=== PATIENT | female | born 1970 | race Caucasian/White ===

== ENCOUNTER 2020-08-11 10:23 | Outpatient (CLI) | payer BC, SELFPAY ==
--- NOTE | ~2020-08-11 | MM_ITS ---
EXAMINATION: MM screening ant BI w tom HISTORY: Screening TECHNIQUE: Craniocaudal and mediolateral oblique 3-D tomosynthesis images were obtained and synthetic 2-D images were generated. CAD analysis was submitted and interpreted. COMPARISON: Comparison to multiple prior studies sequentially, with oldest reviewed study dated 07/15. BREAST PARENCHYMAL COMPOSITION: The breasts are heterogeneously dense, which may obscure small masses . FINDINGS: There is no evidence of suspicious mass, calcification, or architectural distortion to sugg est malignancy in either breast. There has been no suspicious interval change. IMPRESSION: 1. No mammographic evidence of malignancy. 2. Recommend routine screening mammography in one year. BI-RADS Category 1: Negative Reviewed, dictated and finalized at location A.
== END 2020-08-11 10:24 | disposition home or self-care (01) ==
PROVIDERS: Visit Provider Obstetrics & Gynecology
DX: Z12.31 Encounter for screening mammogram for malignant neoplasm of breast (principal)
CPT/HCPCS: 77063; 77067

== ENCOUNTER 2021-08-17 15:56 | Outpatient (CLI) | payer BC, SELFPAY ==
--- NOTE | ~2021-08-17 | MM_ITS ---
EXAMINATION: MM screening [facility] BI w tom HISTORY: Screening mammogram TECHNIQUE: Craniocaudal and mediolateral oblique 3-D tomosynthesis images were obtained and synthetic 2-D images were generated. Right rotated lateral cc view. CAD analysis was submitted and interpreted . COMPARISON: 08/11/2020, 08/05/2019, 08/18/2018, 07/31/2017, 07/26/2016, 07/21/2015, 07/15/2014, 07/02/2013 b ilateral digital screening mammogram examinations BREAST PARENCHYMAL COMPOSITION: The breasts are heterogeneously dense, which may obscure small masses . FINDINGS: An approximately 7.7 mm circumscribed mass is partially visualized at the very posterior ma rgin of the inner left breast on craniocaudal view (craniocaudal Tomosynthesis image 36/68). Diagnost ic left mammogram and left breast ultrasound examination are recommended. Otherwise there is no evidence of suspicious mass, calcification, or architectural distortion to sugg est malignancy in either breast. There has been no other suspicious interval change. IMPRESSION: 1. Posterior inner left breast approximately 7.7 mm mass 2. Diagnostic left mammogram and left breast ultrasound examination are recommended. BI-RADS Category 0: Incomplete: Needs additional imaging evaluation. Reviewed, dictated and finalized at location A. IMPRESSION: 1. Posterior inner left breast approximately 7.7 mm mass 2. Diagnostic left mammogram and left breast ultrasound examination are recomme nded. BI-RADS Category 0: Incomplete: Needs additional imaging evaluation.
== END 2021-08-17 15:57 | disposition home or self-care (01) ==
LOC: ANHIMG 15:58
PROVIDERS: PCP Nurse Practitioner Family; Visit Provider Obstetrics & Gynecology
DX: Z12.31 Encounter for screening mammogram for malignant neoplasm of breast (principal); R92.8 Other abnormal and inconclusive findings on diagnostic imaging of breast
CPT/HCPCS: 77063; 77067

== ENCOUNTER 2021-09-03 12:32 | Outpatient (CLI) | payer BC, SELFPAY ==
--- NOTE | ~2021-09-03 | MMUS_ITS ---
EXAMINATION: MM diagnostic ant LT w tom, US breast LT limited HISTORY: Follow-up left breast mass TECHNIQUE: Additional 3-D tomosynthesis images of the left breast were performed and synthetic 2-D im ages were generated. CAD analysis was submitted and interpreted. High resolution Limited left breast ultrasound was performed. COMPARISON: Comparison to multiple prior studies sequentially, with oldest reviewed study dated 07/26. BREAST PARENCHYMAL COMPOSITION: Breast composed of scattered areas of fibroglandular density. FINDINGS: MAMMOGRAPHIC FINDINGS: There is a radiolucent mass anteriorly and medially which is unchanged from prior examinations, benig n. There is a persistent mass in the lower inner quadrant of the left breast with radiolucent center and circumscribed margins measuring approximately 8 mm maximum dimension. No suspicious calcification s or architectural distortion. ULTRASOUND: Limited left breast ultrasound: At 12:00 near the nipple is a cluster of cysts measuring up to 7 mm i n aggregate. There are prominent subareolar and periareolar ducts. At 6:00 near the nipple there is a 5 mm cyst. At 8:00, 3 cm from the nipple, there is irregular hyperechoic soft tissue, likely normal interstitial tissue which blends with the surrounding parenchyma. No definite sonographic correlate t o the mass in the lower inner quadrant posteriorly. IMPRESSION: 1. Probable benign mass lower inner quadrant of the left breast without definite sonographic correlat e. 2. Recommend 6 month follow-up diagnostic left mammogram with possible ultrasound. BI-RADS category 3, probably benign findings. Reviewed, dictated and finalized at location A. IMPRESSION: 1. Probable benign mass lower inner quadrant of the left breast without definit e sonographic correlate. 2. Recommend 6 month follow-up diagnostic left mammogram with possible ultrasou nd. BI-RADS category 3, probably benign findings.
== END 2021-09-03 12:33 | disposition home or self-care (01) ==
LOC: ANHIMG 12:33
PROVIDERS: PCP Nurse Practitioner Family; Visit Provider Obstetrics & Gynecology
DX: R92.8 Other abnormal and inconclusive findings on diagnostic imaging of breast (principal)
CPT/HCPCS: 76642; 77061; 77065; G0279

== ENCOUNTER 2022-03-04 12:56 | Outpatient (CLI) | payer BC, SELFPAY ==
--- NOTE | ~2022-03-04 | MMUS_ITS ---
EXAMINATION: MM diagnostic ant LT w tom, US breast LT complete HISTORY: Six-month follow-up of probable benign mass lower inner quadrant left breast without definit e sonographic correlate TECHNIQUE: ML, MLO and CC 3-D tomosynthesis images of the right breast were performed and synthetic 2 -D images were generated. Rotated medial and rotated lateral craniocaudal views. CAD analysis was sub mitted and interpreted. High resolution complete left breast ultrasound including all 4 quadrants and subareolar area was performed. COMPARISON: 09/03/2021 diagnostic left mammogram and limited left breast ultrasound Serial mammograms dating back to 07/19/2013 were reviewed BREAST PARENCHYMAL COMPOSITION: The breasts are heterogeneously dense, which may obscure small masses . FINDINGS: MAMMOGRAPHIC FINDINGS: Stable or diminished opacities are noted in the anterior inner left breast and posterior lateral inne r left breast compared to 07/02/2013. No interval suspicious mass, architectural distortion, malignant calcification, skin thickening or re traction of the left breast is detected. ULTRASOUND: Dilated fluid-filled ducts are noted in the subareolar area. Stable septated cyst at 12:00 near the nipple, measuring approximately 5.5 mm maximal dimension 8:00 3 cm from nipple: Stable appearance of mixed density peripherally hyperechoic and centrally hypo echoic area without suspicious shadowing or internal vascularity, likely benign IMPRESSION: 1. Probably benign findings 2. 6 month diagnostic bilateral mammogram follow-up with targeted left breast ultrasound is recommend ed BI-RADS category 3, probably benign findings. Reviewed, dictated and finalized at location A. IMPRESSION: 1. Probably benign findings 2. 6 month diagnostic bilateral mammogram follow-up with targeted left breast u ltrasound is recommended BI-RADS category 3, probably benign findings.
== END 2022-03-04 12:57 | disposition home or self-care (01) ==
PROVIDERS: PCP Nurse Practitioner Family; Visit Provider Obstetrics & Gynecology
DX: R92.8 Other abnormal and inconclusive findings on diagnostic imaging of breast (principal)
CPT/HCPCS: 76641; 77061; 77065; G0279

== ENCOUNTER 2022-08-22 12:13 | Outpatient (CLI) | payer BC, SELFPAY ==
--- NOTE | ~2022-08-22 | MMUS_ITS ---
EXAMINATION: MM diagnostic ant BI w tom, US breast LT limited HISTORY: Six-month follow-up for probably benign left breast mass TECHNIQUE: Craniocaudal, mediolateral, and mediolateral oblique 3-D tomosynthesis images of the left breast were performed and synthetic 2-D images were generated. CAD analysis was submitted and interpr eted. High resolution limited left breast ultrasound was performed. COMPARISON: 03/04/2022, 09/03/2021, 08/17/2021, 08/11/2020 BREAST PARENCHYMAL COMPOSITION: The breasts are heterogeneously dense, which may obscure small masses . FINDINGS: MAMMOGRAPHIC FINDINGS: Left breast: There is an obscured low density 6 mm mass in the far posterior third of the inner breas t at the 8:00 location 8 cm from the nipple. Right breast: No suspicious mass, calcification, or architectural distortion are identified to sugges t malignancy. There has been no suspicious interval change. ULTRASOUND: There is an 8 mm x 4 mm oval, irregular, hypoechoic mass with an echogenic rim, no posterior features , and no internal vascularity at the 8:00 location 3 cm from the nipple. IMPRESSION: 1. Indeterminate left breast mass. 2. Ultrasound-guided biopsy is recommended. BI-RADS category 4, suspicious findings. Reviewed, dictated and finalized at location A. IMPRESSION: 1. Indeterminate left breast mass. 2. Ultrasound-guided biopsy is recommended. BI-RADS category 4, suspicious findings.
== END 2022-08-22 12:14 | disposition home or self-care (01) ==
LOC: ANHIMG 12:13
PROVIDERS: PCP Nurse Practitioner Family; Visit Provider Obstetrics & Gynecology
DX: R92.8 Other abnormal and inconclusive findings on diagnostic imaging of breast (principal)
CPT/HCPCS: 76642; 77062; 77066; G0279

== ENCOUNTER 2023-04-12 15:23 | Outpatient (CLI) | payer BC, SELFPAY ==
--- NOTE | ~2023-04-12 | MMUS_ITS ---
EXAMINATION: MM diagnostic ant LT w tom, US breast LT limited HISTORY: Left breast mass follow-up after biopsy elsewhere TECHNIQUE: Bilateral full field ML, MLO, CC, rotated lateral CC and left spot CC and MLO 3-D tomosynt hesis images of were performed and synthetic 2-D images were generated. CAD analysis was submitted an d interpreted. High resolution targeted inner left breast ultrasound was performed. COMPARISON: 08/18/2022 diagnostic bilateral mammogram and limited left breast ultrasound examination 03/04/2022 diagnostic left mammogram and complete left breast ultrasound examination 09/03/2021 diagnostic left mammogram and limited left breast ultrasound 08/17/2021 bilateral screening mammogram BREAST PARENCHYMAL COMPOSITION: The breasts are heterogeneously dense, which may obscure small masses . FINDINGS: MAMMOGRAPHIC FINDINGS: Circumscribed approximately 7 x 8.9 mm opacity is again noted in the very posterior mid inner left br east. The margins are circumscribed and there is halo sign, suggesting benign process. ULTRASOUND: Once again no sonographic correlate is noted for this very posterior mid inner left breast mass, desp ite second look imaging, as was the case on 09/03/2021. Breast mass marker is noted at 8:00 5 cm from the nipple; history of benign biopsy at this location. IMPRESSION: 1. Chronic likely benign posterior mid inner left breast mammographic mass without sonographic correl ate, present on 08/17/2021 2. 6 month follow-up diagnostic left mammogram and left breast ultrasound examination are recommended BI-RADS category 3, probably benign findings. Reviewed, dictated and finalized at location A. IMPRESSION: 1. Chronic likely benign posterior mid inner left breast mammographic mass with out sonographic correlate, present on 08/17/2021 2. 6 month follow-up diagnostic left mammogram and left breast ultrasound exami nation are recommended BI-RADS category 3, probably benign findings.
== END 2023-04-12 15:24 | disposition home or self-care (01) ==
LOC: ANHIMG 15:25
PROVIDERS: PCP Nurse Practitioner Family; Visit Provider Obstetrics & Gynecology
DX: R92.8 Other abnormal and inconclusive findings on diagnostic imaging of breast (principal)
CPT/HCPCS: 76642; 77061; 77065; G0279

== ENCOUNTER 2024-04-03 12:49 | Outpatient (CLI) | payer BC, SELFPAY ==
--- NOTE | ~2024-04-03 | MM_ITS ---
EXAMINATION: MM diagnostic ant LT w tom HISTORY: Follow-up left breast mass TECHNIQUE: Additional 3-D tomosynthesis images of the left breast were performed and synthetic 2-D im ages were generated. CAD analysis was submitted and interpreted. COMPARISON: Comparison to multiple prior studies sequentially, with oldest reviewed study dated 02/2021. BREAST PARENCHYMAL COMPOSITION: Dense: The breasts are heterogeneously dense, which may obscure small masses FINDINGS: The left breast is stable. No new masses, calcifications or architectural distortion in the left breast to suggest malignancy. IMPRESSION: 1. No mammographic evidence for malignancy in the left breast. 2. Routine yearly screening mammogram and regular clinical breast examination are recommended. BI-RADS Category 2: Benign finding(s). Reviewed, dictated and finalized at location B. IMPRESSION: 1. No mammographic evidence for malignancy in the left breast. 2. Routine yearly screening mammogram and regular clinical breast examination a re recommended. BI-RADS Category 2: Benign finding(s).
== END 2024-04-03 12:50 | disposition home or self-care (01) ==
LOC: ANHIMG 12:50
PROVIDERS: PCP Nurse Practitioner Family; Visit Provider Obstetrics & Gynecology
DX: R92.8 Other abnormal and inconclusive findings on diagnostic imaging of breast (principal)
CPT/HCPCS: 77061; 77065; G0279

== ENCOUNTER 2025-03-03 15:13 | Outpatient (CLI) | payer BC, SELFPAY ==
--- NOTE | ~2025-03-03 | MM_ITS ---
EXAMINATION: MM screening ant BI w tom HISTORY: Screening TECHNIQUE: Craniocaudal and mediolateral oblique 3-D tomosynthesis images were obtained and synthetic 2-D images were generated. CAD analysis was submitted and interpreted. COMPARISON: Comparison to multiple prior studies sequentially, with oldest reviewed study dated 03/2022. BREAST PARENCHYMAL COMPOSITION: Dense: The breasts are heterogeneously dense, which may obscure small masses FINDINGS: There is no evidence of suspicious mass, calcification, or architectural distortion to sugg est malignancy in either breast. There has been no suspicious interval change. IMPRESSION: 1. No mammographic evidence of malignancy. 2. Recommend routine screening mammography in one year. BI-RADS Category 1: Negative Reviewed, dictated and finalized at location A.
--- OUTSIDE RECORDS SUMMARY | 2025-03-03 15:57 | XMS_ITS | Encounter Summary ---
Author Organization [facility] Address [address] [place] [address] Care Team Providers Care Purchasing Expeditor Name Role Phone Miranda Ruiz [facility] Primary Care Provider [phone] Encounter Details Date Type Department Care Team (Late st Contact Info) Description 08/12/2021 DriveKt Message Enc [facility] [address] [place] [address] Miranda Ruiz [facility] [address] [place], [place] [id number] RE: Question Social History Tobacco Use Types Packs/Day Years Used Date Smoking Tobacco: Never Smokeless Tobacco: Never Alcohol Use Standard Drinks/Week Comments No 0 (1 standard drink = 0.6 oz pur e alcohol) AUDIT-C Answer Date Recorded Frequency of Alcohol Consumption Never 09/05/2018 Average Number of Drinks Not on file 018 Frequency of Binge Drinking Not on file 04/2018 PHQ-2 Answer Date Recorded PHQ-2 Score - If the patient scores above 3, please move on to questions 3-9 0 12/09/2020 Comments No Sex and Gender Information Value Date Recorded Sex Assigned at Female 12/10/2024 2:58 PM INDIAN BLANKET WEAVER Legal Sex Female 7:54 AM CDT Gender Identity Not on file Sexual Orientation Not on file COVID-19 Exposure Response Date Recorded In the last month, have you been in contact with someone who was confirmed or suspected to have Coronavirus / COVID-19? No / Unsure 08/12/2021 1:14 PM CDT documented as of this encounter Plan of Treatment Not on file documented as of this encounter Visit Diagnoses Not on filedocumented in this encounter Additional Health Concerns Infection Onset Date Last Indicated Resolved Time COVID-19 Rule Out 11/25/2022 11/25/2022 11/25/2022 1:16 PM INDIAN BLANKET WEAVER COVID-19 Rule Out 11/27/2022 11/27/2022 11/27/2022 10:54 AM INDIAN BLANKET WEAVER documented as of this encounter Care Teams Purchasing Expeditor Relationship Specialty Start Date End Date Miranda Ruiz FNP [address] [place] [address] [place] [address] PCP - General FAMILY PRACTICE 08/29/18 documented as of this encounter
--- OUTSIDE RECORDS SUMMARY | 2025-03-03 15:57 | XMS_ITS | Encounter Summary ---
Author Organization [facility] Address [address] [place] [address] Care Team Providers Care Trail Maintenance Worker Name Role Phone Miranda Ruiz [facility] Primary Care Provider [phone] Encounter Details Date Type Department Care Team (Late st Contact Info) Description 09/30/2023 [place] Bundlet Message Enc [facility] [address] [place] [address] Miranda Ruiz [facility] [address] [place], [place] [id number] Blood pressure Social History Tobacco Use Types Packs/Day Years [...] please move on to questions 3-9 0 03/02/2022 Comments No Sex and Gender Information Value Date Recorded Sex Assigned at Female 12/10/2024 2:58 PM SAW FEEDER Legal Sex Female 7:54 AM CDT Gender Identity Not on file Sexual Orientation Not on file documented as of this encounter Plan of Treatment Not on file documented as of this encounter Visit Diagnoses Not on filedocumented in this encounter Additional Health Concerns Assessment Noted Time PHQ-9 Depression Total Score: 0 03/02/20 22 8:28 AM CDT documented as of this encounter Care Teams Trail Maintenance Worker Relationship Specialty Start Date End Date Miranda Ruiz FNP [address] [place] [address] [place] [address] PCP - General FAMILY PRACTICE 08/29/18 documented as of this encounter
--- OUTSIDE RECORDS SUMMARY | 2025-03-03 15:57 | XMS_ITS | Encounter Summary ---
Author Organization [facility] Address [address] [place] [address] Care Team Providers Care Drafter Electrical Name Role Phone Miranda Ruiz [facility] Primary Care Provider [phone] Encounter Details Date Type Department Care Team (Late st Contact Info) Description 09/15/2023 SyCara Localt Message Enc [facility] [address] [place], [place] [phone] Miranda Ruiz, [facility] [address] [place], [place] [phone] Mammogram Social History Tobacco Use Types Packs/Day Years [...] Sex Assigned at Female 12/10/2024 2:58 PM CRIME LAB TECHNICIAN Legal Sex Female 7:54 AM CDT Gender Identity Not on file Sexual Orientation Not on file documented as of this encounter Progress Notes * Dana Hebert LPN - 09/15/2023 10:21 AM CST Please review. FYI. E LAB TECHNICIAN documented in this encounter Plan of Treatment Not on file documented as of this encounter Visit Diagnoses Not on filedocumented in this encounter Additional Health Concerns Assessment Noted Time PHQ-9 Depression Total Score: 0 03/02/20 8:28 AM CDT documented as of this encounter Care Teams Drafter Electrical Relationship Specialty Start Date End Date Miranda Ruiz FNP [address] [place] [address] [place] [address] PCP - General FAMILY PRACTICE 08/29/18 documented as of this encounter
--- OUTSIDE RECORDS SUMMARY | 2025-03-03 15:57 | XMS_ITS | Clinical Summary ---
Author Organization [facility] Address [address] [place] [address] Care Team Providers Care Cottage Master Name Role Phone Miranda Ruiz FAHAD Primary Care Provider [phone] Allergies Active Allergy Reactions Criticality Noted Date Comments Iodinated Contrast Media Hives,Nausea and Vomiting High 09/15/2022 Iodine Unknown 11/18/2011 Reaction many years ago, approx age 6 Medications probiotic capsule Take 1 capsule by mouth daily. Active Cholecalciferol (VITAMIN D) 125 MCG (5000 UT) CapIndications:V itamin D deficiency Take 5,000 Units by mouth daily. 90 capsule 3 1 Active fluticasone propionate (FLONASE) 50 MCG/ACT nasal sprayIndications :Seasonal allergic rhinitis due to pollen,Non-recur rent acute serous otitis media of left ear 2 sprays by Nasal route daily. 15.8 mL 1 4 Active Fezolinetant (VEOZAH) 45 MG TabIndications:H ot flashes due to menopause Take 45 mg by mouth daily. 30 tablet 5 4 Active famotidine (PEPCID) 20 MG tablet Take 1 tablet (20 mg total) by mouth daily. 4 Active Lactobacillus (PROBIOTIC ACIDOPHILUS OR) Probiotic Acti ve cetirizine (ZYRTEC) 10 MG tabletIndication s:Seasonal allergic rhinitis due to pollen Take 1 tablet by mouth once daily 90 tablet 5 Active amLODIPine (NORVASC) 2.5 MG tabletIndication s:Primary hypertension Take 1 tablet (2.5 mg total) by mouth daily. 90 tablet 1 5 Active atorvastatin (LIPITOR) 20 MG tabletIndication s:Mixed dyslipidemia Take 1 tablet (20 mg total) by mouth nightly at bedtime. 90 tablet 1 5 Active montelukast (SINGULAIR) 10 MG tabletIndication s:Chronic rhinitis Take 1 tablet (10 mg total) by mouth daily. 90 tablet 1 5 Active olmesartan (BENICAR) 40 MG tabletIndication s:Primary hypertension Take 1 tablet (40 mg total) by mouth daily. 90 tablet 1 5 Active montelukast (SINGULAIR) 10 MG tabletIndication s:Chronic rhinitis Take 1 tablet (10 mg total) by mouth daily. 90 tablet 1 5 02/28/20 25 Discontin ued(Reord er) atorvastatin (LIPITOR) 20 MG tabletIndication s:Mixed dyslipidemia Take 1 tablet (20 mg total) by mouth nightly at bedtime. 90 tablet 5 02/28/20 25 Discontin ued(Reord er) olmesartan (BENICAR) 40 MG tabletIndication s:Primary hypertension Take 1 tablet (40 mg total) by mouth daily. 90 tablet 5 02/28/20 25 Discontin ued(Reord er) amLODIPine (NORVASC) 2.5 MG tabletIndication s:Primary hypertension Take 1 tablet (2.5 mg total) by mouth daily. 90 tablet 5 02/28/20 25 Discontin ued(Reord er) Active Problems Problem Noted Date Diagnosed Date Pre-diabetes 02/27/2025 Primary hypertension 09/03/2024 Mass of lower inner quadrant of left breast 08/30 Mixed hyperlipidemia 09/05/2019 Chronic idiopathic constipation 03/06/2019 Musculoskeletal pain 02/02/2018 Overview (09/05/2018): Date Onset: 02/02/2018 Allergic rhinitis 11/18/2011 Resolved Problems Problem Noted Date Diagnosed Date Resolved Date Urinary frequency 07/06/2016 05/25/2021 Overview (09/05/2018): Date Onset: 07/06/2016 Gastro-esophageal reflux dis ease without esophagitis 11/18/2011 09/05/2019 Encounters Date Type Department Care Team Description 02/27/2025 4:00 PM CDT Office Visit [address] [place] [address] Miranda Ruiz FNP Follow Up (Patient is here for 2 month follow up. /mentioned going over labwork as well./) 02/27/2025 Travel 02/18/2025 Travel 01/09/2025 11:20 AM CDT Office Visit [address] [place] [address] Miranda Ruiz FNP Pre-Op Exam (Pt is here for a pre op appt due to upcoming hand surgery on 01/10/[address] Mosqueda) 01/09/2025 Scan [employer] INFO SRVCS Scanned, [facility] 01/09/2025 Travel 01/09/[address] [place] [address] Miranda Ruiz FNP Information 12/27/2024 4:00 PM OFFICE MESSENGER Office Visit [address] [place] [address] Miranda Ruiz FNP Blood Pressure Changes; Ear Concern (Left ear pain noted starting overnight. ) 12/27/2024 Travel 12/10/2024 3:00 PM OFFICE MESSENGER Office Visit [address] [place] [address] Miranda Ruiz FNP Rash (on chin and right side of face. Since yesterday./) 12/10/2024 Travel from Last 3 Months Immunizations Immunization Administration Dates Next Due Fluzone (IIV3, Trivalent, 0.5 ML Prefilled Syrin ge) 10/03/2024 Fluzone 6 Months+ Quad (0.5 mL Prefilled Syringe ) 09/05/2019 Influenza Adult (Generic) 09/17/2016 Shingrix 06/30/2024,03/27/2024 Tdap (Adacel) 09/05/2019 Tdap (Generic) 04/25/2007 Family History Medical History Relation Comments Hyperlipidemia Father Hypertension Father Parkinson's Disease Father cardiovascular dis Maternal Grandfather Hyperlipidemia Mother Hypertension Mother Rheumatoid Arthritis Mother histoplasmosis Mother Heart Disease Paternal Grandfather OK Paternal Grandfather Cancer Paternal Grandmother cardiovascular disease Paternal Grandmother Relation Status Comments Father Alive Maternal Grandfather Mother Alive Paternal Grandfather Paternal Grandmother Social History Tobacco Use Types Packs/Day Years Used Date Smoking Tobacco: Never Smokeless Tobacco: Never Tobacco Cessation:Counseling Given: Not Answered Alcohol Use Standard Drinks/Week Comments No 0 (1 standard drink = 0.6 oz pur e alcohol) AUDIT-C Answer Date Recorded Frequency of Alcohol Consumption Never 09/05/2018 Average Number of Drinks Not on file 018 Frequency of Binge Drinking Not on file 04/2018 PHQ-2 Answer Date Recorded Patient Health Questionnaire-2 Score 0 12/10/2024 Comments No Sex and Gender Information Value Date Recorded Sex Assigned at Female 12/10/2024 2:58 PM OFFICE MESSENGER Legal Sex Female 7:54 AM CDT Gender Identity Not on file Sexual Orientation Not on file Last Filed Vital Signs Vital Sign Reading Time Taken Comments Blood Pressure 122/82 02/27/2025 3:56 PM CDT Pulse 74 02/27/2025 3:56 PM CDT Temperature 36.7 C (98 F) 02/27/2025 3:56 PM CDT Respiratory Rate 20 02/27/2025 3:56 PM CDT Oxygen Saturation 97% 02/27/2025 3:56 PM CDT Inhaled Oxygen Concentration - - Weight 73.6 kg (162 lb 3.2 oz) 02/27/2025 3:56 P M CDT Height 161.3 cm (5' 3.5 ) 02/27/2025 3:56 PM CDT Body Mass Index 28.28 02/27/2025 3:56 PM CDT Plan of Treatment Health Maintenance Due Date Last Done Comments Cervical Cancer Screening Pap Smear (Age 30 to 64) Every 3 Years 1971 Cervical Cancer Screening Pap with HPV Testing (Age 30 to 64) Every 5 Years 2001 Annual Physical 06/08/2024 06/08/2023 Pneumococcal Vaccine: 50+ Years (1 of 1 - PCV) 07/30/2025 Postponed from 2021 (Awaiting Documentation) COVID-19 Vaccine (2023-25 season) 2025 Postponed from 06/30/2024 (Patient Refused) Mammogram Screening 04/03/2026 04/03/2024, 09/29/2023, 04/12/2023, Additional history exists Colorectal Cancer Screening FIT-DNA (3 Years) 06/21/2026 06/21/2023, 06/21/2023 Cervical Cancer Screening with HPV 07/30/2027 Postponed from 2001 (Going to Outside Clinic) DTaP, Tdap and Td Vaccines (3 - Td or Tdap) 09/05/2029 09/05/2019, 04/25/2007 Hepatitis B Vaccines (1 of 3 - 19+ 3-dose series) 10/30/2039 Postponed from 1990 (Future Appointment) Hepatitis C Completed 08/11/2020 Zoster Vaccines Completed 06/30/2024, 03/27/2024 PHQ-2 (Physician [place]) Completed 12/10/2024 Meningococcal B Vaccine Aged Out No l onger eligible based on patient's age to complete this topic Meningococcal Vaccine Aged Out No armando ann eligible based on patient's age to complete this topic RSV Immunizations Under 20 Months Aged Out No longer eligible based on patient's age to complete this topic Procedures Procedure Name Priority Date/Time Associated Diagnosis Comments VITAMIN D, 25 OH TOTAL Routine 02/18/2025 6:45 AM CDT [facility] WITH LIPID Routine 02/18/2025 6:45 AM CDT [facility] HEMOGLOBIN A1C Routine 02/18/2025 6:45 AM CDT MAMMOGRAM GENERIC (SCAN ORDER) 04/03/2024 COLOGUARD (EXACT SCIENCE) Routine 06/21/2023 12:25 PM CDT Screening for colon cancer HEPATITIS C RNA W/ REFLX GENOTYPE Routine 08/11/2020 1:40 PM CDT from Last 3 Months or Most Recently Relevant to Health Maintenance Results * (ABNORMAL) HEALTH FAIR WITH LIPID (02/18/2025 6:45 AM CDT) GLUCOSE 87 70 - 99 MG/DL 02/19/2025 1:40 AM CDT [facility] BUN 14 7 - 18 MG/DL 02/19/2025 1:40 AM T [facility] SODIUM S/P/B 140 136 - 145 MMOL/L 02/19/2025 1:40 AM T [facility] POTASSIUM S/P/B 4.0 3.5 - 5.1 MMOL/L 02/19/2025 1:40 AM CDT [facility] CHLORIDE S/P/B 108 97 - 115 MMOL/L 02/19/2025 1:40 AM T [facility] CO2 23.5 21 - 32 MMOL/L 02/19/2025 1:40 AM T [facility] CREATININE S/P/B 0.80 0.55 - 1.02 MG/DL 02/19/2025 1:40 AM CDT [facility] CALCIUM S/P/B 8.7 8.5 - 10.1 MG/DL 02/19/2025 1:40 AM T [facility] ALBUMIN S/P/B 3.9 3.4 - 5.0 G/DL 02/19/2025 1:40 AM T [facility] TOTAL PROTEIN S/P/B 7.2 6.4 - 8.2 G/DL 02/19/2025 1:40 AM T [facility] BILIRUBIN TOTAL S/P/B 0.7 0.2 - 1.2 MG/DL 02/19/2025 1:40 AM T [facility] Comment: THIS ASSAY IS NOT RECOMMENDED FOR PATIENTS UNDERGOING TREATMENT WITH ELTROMBOPAG DUE TO THE POTENTIAL FOR FALSELY ELEVATED RESULTS. ALT 53 14 - 55 U/L 02/19/2025 1:40 AM T [facility] AST 35 15 - 37 U/L 02/19/2025 1:[address] [facility] ALKALINE PHOSPHATASE S/P/B 150(H) 50 - 136 U/L 02/19/2025 1:[address] [facility] A/G RATIO 1.2 1.0 - 2.0 RATIO 02/19/2025 1:[address] [facility] GFR ESTIMATE 88(L) >90 ML/MIN/1. 73 M2 02/19/2025 1:[address] [facility] Comment: NOTE: eGFR is not calculated for patients <18 years of age or gender unknown. This is an estimated GFR calculation using the new CKD EPI creatinine equation without race and so does not require a correction factor for race. This estimated GFR should not be used for calculating drug doses. CHOLESTEROL 137 <200 MG/DL 02/19/2025 1:[address] [facility] TRIGLYCERIDES 145 <150 MG/DL 02/19/2025 1:[address] [facility] HDL 40(L) >40.0 MG/DL 02/19/2025 1:[address] [facility] LDL (CALCULATED) 68 <100 MG/DL 02/19/2025 1:[address] [facility] NON HDL CHOLESTEROL 97 <130 MG/DL 02/19/2025 1:[address] [facility] CHOL/HDL RATIO 3.4 0.0 - 4.5 02/19/2025 1:[address] [facility] VLDL CALCULATION 29 5 - 55 MG/DL 02/19/2025 1:[address] [facility] LIPID INTERPRETATION 02/19/2025 1:[address] [facility] Comment: NIH CONCENSUS REPORT RECOMMENDATIONS: ADULT CHILD LOW RISK: CHOLESTEROL <200 <170 TRIGLYCERIDE <150 --- HDL >=60 --- LDL <100 <110 BORDERLINE: CHOLESTEROL 200-239 170-199 TRIGLYCERIDE 150-199 --- HDL 40-59 --- LDL 100-159 110-129 HIGH RISK: CHOLESTEROL >=240 >=200 TRIGLYCERIDE >=200 --- HDL <40 --- LDL >=160 >=130 TSH 1.580 0.358 - 3.74 uIU/ML 02/19/2025 1:40 AM CDT [facility] Comment: HIGH DOSES OF BIOTIN MAY INTERFERE WITH THIS TEST RESULT. CORRELATION TO CLINICAL HISTORY AND PRESENTATION RECOMMENDED. WBC 3.95(L) 4.50 - 11.00 x10'3/uL 02/18/2025 8:47 AM CDT [facility] RBC 4.71 4.00 - 5.20 x10'6/uL 02/18/2025 8:47 AM CDT [facility] HGB 13.4 12.0 - 16.0 G/DL 02/18/2025 8:47 AM CDT [facility] HCT 41.3 38.0 - 48.0 % 02/18/2025 8:47 AM CDT [facility] MCV 87.7 80.0 - 100.0 FL 02/18/2025 8:47 AM CDT [facility] MCH 28.5 26.0 - 34.0 PG 02/18/2025 8:47 AM CDT [facility] MCHC 32.4 31.0 - 37.0 G/DL 02/18/2025 8:47 AM CDT [facility] PLT 243 130 - 400 x10'3/uL 02/18/2025 8:47 AM CDT [facility] 02/18/2025 6:45 AM CDT Rizwan Ortiz MD LABORATORY Final Result [facility] [address] [address], [facility] [address] [place] [address], * VITAMIN D, 25 OH TOTAL (02/18/2025 6:45 AM CDT) VITAMIN D 25 HYDROXY S/P/B 49 30 - 100 NG/ML 02/18/2025 3:45 PM CDT [facility] 02/18/2025 6:45 AM CDT Rizwan Ortiz MD LABORATORY Final Result [facility] [address] [place] [address], * (ABNORMAL) HEMOGLOBIN A1C (02/18/2025 6:45 AM CDT) Pathologist [facility] HGB A1C 6.0(H) <5.7 % 02/18/2025 7:03 PM CDT [facility] Comment: ADA GUIDELINES 2010 5.7 TO 6.4% INCREASED RISK OF DIABETES > OR = 6.5% CONSISTENT WITH DIABETES ESTIMATED AVG GLUCOSE 126 mg/dL 02/18/2025 7:03 PM CDT [facility] 02/18/2025 6:45 AM CDT Rizwan Ortiz MD LABORATORY Final Result [facility] [address] [place] [address], * MAMMOGRAM GENERIC (SCAN ORDER) (04/03/2024) Anatomical Region Laterality Modality Other 04/03/2024 [facility] Scanned SCANNING Final Resu lt * COLOGUARD (EXACT SCIENCE) (06/21/2023 12:25 PM CDT) COLOGUARD RESULT Negative Negative [employer] (CLIA #:[id number]) Comment: NEGATIVE TEST RESULT. A negative Cologuard result indicates a low likelihood that a colorectal cancer (CRC) or advanced adenoma (adenomatous polyps with more advanced pre-malignant features) is present. The chance that a person with a negative Cologuard test has a colorectal cancer is less than 1 in 1500 (negative predictive value >99.9%) or has an advanced adenoma is less than 5.3% (negative predictive value 94.7%). These data are based on a prospective cross-sectional study of 10,000 individuals at average risk for colorectal cancer who were screened with both Cologuard and colonoscopy. (Sheeba Simeon al, N Engl J Med 2014;370(14):9755-3973) The normal value (reference range) for this assay is negative. COLOGUARD RE-SCREENING RECOMMENDATION: Periodic colorectal cancer screening is an important part of preventive healthcare for asymptomatic individuals at average risk for colorectal cancer. Following a negative Cologuard result, the [place] [employer] Society and U.S. Multi-Society Task Force screening guidelines recommend a Cologuard re-screening interval of 3 years. References: [place] [employer] Guideline for Colorectal Cancer Screening: https://www.cancer.org/cancer/eqqef-fhvmig-qpqzlq/tttugabxb-mayhmmjyy-iniamfb/ac s-rec ommendations.html.; Jose Juan DK, Mj CR, Ajay DyeK, Colorectal Cancer Screening: Recommendations for Physicians and Patients from the U.S. Multi-Society Task Force on Colorectal Cancer Screening , Am J Gastroenterology 2017; 112:8655-8004. TEST DESCRIPTION: Composite algorithmic analysis of stool DNA-biomarkers with hemoglobin immunoassay. Quantitative values of individual biomarkers are not reportable and are not associated with individual biomarker result reference ranges. Cologuard is intended for colorectal cancer screening of adults of either sex, 45 years or older, who are at average-risk for colorectal cancer (CRC). Cologuard has been approved for use by the U.S. FDA. The performance of Cologuard was established in a cross sectional study of average-risk adults aged 50-84. Cologuard performance in patients ages 45 to 49 years was estimated by sub-group analysis of near-age groups. Colonoscopies performed for a positive result may find as the most clinically significant lesion: colorectal cancer [4.0%], advanced adenoma (including sessile serrated polyps greater than or equal to 1cm diameter) [20%] or non- advanced adenoma [31%]; or no colorectal neoplasia [45%]. These estimates are derived from a prospective cross-sectional screening study of 10,000 individuals at average risk for colorectal cancer who were screened with both Cologuard and colonoscopy. (Sheeba Simeon al, N Engl J Med 2014;370(14):8141-3846.) Cologuard may produce a false negative or false positive result (no colorectal cancer or precancerous polyp present at colonoscopy follow up). A negative Cologuard test result does not guarantee the absence of CRC or advanced adenoma (pre-cancer). The current Cologuard screening interval is every 3 years. ([place] [employer] and U.S. Multi-Society Task Force). Cologuard performance data in a 10,000 patient pivotal study using colonoscopy as the reference method can be accessed at the following location: www.[employer].Hipbone/results. Additional description of the Cologuard test process, warnings and precautions can be found at www.cologuard.com. STOOL STOOL SPECIMEN / Unknown 06/21/2023 12:25 PM CDT 06/22/2023 9:47 PM CDT Miranda Ruiz POLE SANDER OPERATOR BODY FLUIDS AND STOOLS ORDERABL ES Final Result [facility] ([facility] 145 LAB) [address] [place] [address], [facility] (CLIA #:[id number]) [address] [place] [address] * HEPATITIS C RNA W/ REFLX GENOTYPE (08/11/2020 1:40 PM CDT) HEPATITIS C AB NON-REACTIVE NON-REACT YARED [facility] SIGNAL TO CUTOFF 0.01 <1.00 [facility] Comment: HCV antibody was non-reactive. There is no laboratory evidence of HCV infection. In most cases, no further action is required. However, if recent HCV exposure is suspected, a test for HCV RNA (test code 93175) is suggested. For additional information please refer to http://education.Fliptop/faq/UZY06f7 (This link is being provided for informational/ educational purposes only.) TORITO LIZARRAGA DO,MPH THIS TEST WAS PERFORMED AT [facility] [address] [place] [address] HEPATITIS C AB NO [facility] COMMENT Not required [facility] 08/11/2020 1:40 PM CDT 08/11/2020 3:34 PM CDT Miranda VÁSQUEZ LABORATORY Final Result [address] [address] from Last 3 Months or Most Recently Relevant to Health Maintenance Insurance Care Teams Cottage Master Relationship Specialty Start Date End Date Miranda Ruiz FNP [address] [place] [address] PCP - General FAMILY PRACTICE 08/29/18
--- OUTSIDE RECORDS SUMMARY | 2025-03-03 15:57 | XMS_ITS | Encounter Summary ---
Author Organization [facility] Address [address] [place] [address] Care Team Providers Care Change Lead Name Role Phone Miranda Ruiz [facility] Primary Care Provider [phone] Encounter Details Date Type Department Care Team (Late st Contact Info) Description 11/07/2023 Yagomartt Message Enc [facility] [address] [place], [place] [id number] Miranda Ruiz [facility] [address] [place], [place] [id number] Eye Drops Social History Tobacco Use Types Packs/Day Years [...] Sex Assigned at Female 12/10/2024 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
--- OUTSIDE RECORDS SUMMARY | 2025-03-03 15:57 | XMS_ITS | Encounter Summary ---
Author Organization [facility] Address [address] [place] [address] Care Team Providers Care Photoengraving Machine Operator/Tender Name Role Phone Miranda Ruiz [facility] Primary Care Provider [phone] Encounter Details Date Type Department Care Team (Late st Contact Info) Description 08/29/2024 YFind Technologiest Message Enc [facility] [address] [place] [address] Miranda Ruiz 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 Legal Sex Female 7:54 AM CDT Gender Identity Not on file Sexual Orientation Not on file documented as of this encounter Progress Notes * Carri Felton MA - 08/29/2024 9:53 AM CDT Plz advise documented in this encounter Plan of Treatment Not on file documented as of this encounter Visit Diagnoses Not on filedocumented in this encounter Additional Health Concerns Assessment Noted Time PHQ-9 Depression Total Score: 0 03/02/20 22 8:28 AM CDT documented as of this encounter Care Teams Photoengraving Machine Operator/Tender Relationship Specialty Start Date End Date Miranda Ruiz FNP [address] [place] [address] [place] [address] PCP - General FAMILY PRACTICE 08/29/18 documented as of this encounter
--- OUTSIDE RECORDS SUMMARY | 2025-03-03 15:57 | XMS_ITS | Patient Health Record ---
Author Organization Torie [facility]ung[facility] Address [address] [place] [address] Care Team Providers Care Pensionholder Information Clerk Name Role Phone Sara JUANITAMiranda Primary Care Provider Claire Rollins Unavailable [phone] ALLERGIES Allergen (clinical drug ingredient) Drug/Non Drug Allergy documented on EMR Reaction Allergy Type Onset Date Status Iodinated contrast media (substance) Iodinated Diagnostic Agents Unknown Drug Allergy Active REASON FOR REFERRAL No Information MEDICATIONS Medication SIG (Take, Route, Frequency, Duration) Notes Start Date End Date Status Vitamin D Active Atorvastatin Calcium 20 MG Oral for 30 Days Active Probiotic Active Cetirizine HCl 10 MG TAKE 1 TABLET BY MO [facility] ONCE DAILY Oral for 30 Days Active Montelukast Sodium 10 MG Oral for 30 Days Active SOCIAL HISTORY Tobacco Use: Social History Observation Description Date Details (start date - stop date) Never Smoker NA - NA Sex Assigned At : Social History Observation Description Sex Assigned At Unknown Tobacco Use/Smoking Question Answer Notes Tobacco use: nonsmoker PLAN OF TREATMENT No Information Insurance Providers Payer Name Payer Address Payer Phone Subscriber Number Group Number Insured Name Patient Relationship to Insured Coverage Start Date Coverage End Date [facility] [id number] [place] [address] [id number] Lucía Lay Self - patient is the insured MEDICAL (GENERAL) HISTORY Medical History History ICD Code high cholesterol
--- OUTSIDE RECORDS SUMMARY | 2025-03-03 15:57 | XMS_ITS | Clinical Summary ---
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 Active cetirizine (ZyrTEC) 10 mg tablet Take 10 mg by mouth daily. 03/02/2022 Active cholecalciferol , Vitamin D3, 125 mcg (5,000 unit) Capsule Take 5,000 Units by mouth daily. 05/25/2021 Active L. acidophilus/Bif id. animalis 32 billion cell Capsule Take 1 Capsule by mouth daily. Active montelukast (SINGULAIR) 10 mg tablet Take 10 mg by mouth daily. 08/16/2022 Active Active Problems Problem Noted Date Diagnosed Date Mass of lower inner quadrant of left breast 08/30 Family History Medical History Relation Name Comments Breast Cancer Paternal Grandmother Relation Name Status Comments Paternal Grandmother Social History Tobacco Use Types Packs/Day Years Used Date Smoking Tobacco: Never Assessed Comments No Sex and Gender Information Value Date Recorded Sex Assigned at Not on file Legal Sex Female 10:47 AM CDT Gender Identity Not on file Sexual Orientation Not on file Last Filed Vital Signs Vital Sign Reading Time Taken Comments Blood Pressure 144/80 09/15/2022 9:51 AM EMERGENCY PLANNING AND RESPONSE MANAGER Pulse - - Temperature - - Respiratory Rate - - Oxygen Saturation - - Inhaled Oxygen Concentration - - Weight 66.2 kg (146 lb) 09/15/2022 9:51 AM EMERGENCY PLANNING AND RESPONSE MANAGER Height 162.6 cm (5' 4 ) 09/15/2022 9:51 AM EMERGENCY PLANNING AND RESPONSE MANAGER Body Mass Index 25.06 09/15/2022 9:51 AM EMERGENCY PLANNING AND RESPONSE MANAGER Plan of Treatment Health Maintenance Due Date Last Done Comments HEPATITIS B VACCINES (1 of 3 - 19+ 3-dose series) 1990 HPV/Cotest (21-29) 1992 CERVICAL CANCER SCREENING 2001 HPV/Cotest (30-65) 2001 PAP SMEAR 2001 COLORECTAL SCREENING 2016 Colorectal Cancer Screening 2016 FIT-DNA Q 3 years 2016 FIT/FOBT Q 1 year 2016 Flex Sig/CT Colonography Q 5 years 2016 ZOSTER VACCINE (1 of 2) 2021 INFLUENZA VACCINE (#1) 2024 09/05/2019 BREAST CANCER SCREENING 09/29/2024 09/29/20 23, 08/22/2022, 03/04/2022, Additional history exists DTAP/TDAP/TD VACCINES (3 - T d or Tdap) 09/05/2029 09/05/2019, 04/25/2007 Procedures Procedure Name Priority Date/Time Associated Diagnosis Comments MAMMO 3D GIUSEPPE SCREEN BILAT W OR WO CAD Routine 09/29/2023 2:24 PM EMERGENCY PLANNING AND RESPONSE MANAGER Visit for screening mammogram from Last 3 Months or Most Recently Relevant to Health Maintenance Results * MAMMO SCRN BILAT 3D GIUSEPPE W OR WO CAD (09/29/2023 2:24 PM EMERGENCY PLANNING AND RESPONSE MANAGER) Anatomical Region Laterality Modality Breast Bilateral Mammography 09/29/2023 2:28 PM EMERGENCY PLANNING AND RESPONSE MANAGER Impressions 09/29/2023 3:26 PM EMERGENCY PLANNING AND RESPONSE MANAGER IMPRESSION: No mammographic evidence of malignancy. RECOMMENDATIONS: Routine screening mammogram in one year. DICTATION LOCATION: [facility], [place], [facility] Narrative 09/29/2023 3:26 PM EMERGENCY PLANNING AND RESPONSE MANAGER BILATERAL FULL-FIELD DIGITAL SCREENING MAMMOGRAM WITH CAD WITH 3D TOMOSYNTHESIS DATE: 09/29/2023 2:24 PM HISTORY: Routine screening. TECHNIQUE: Full-field digital craniocaudal and mediolateral oblique projections of both breasts were obtained. Low-dose full-field digital breast tomosynthesis examination was performed with 2D and 3D acquisitions. Examination is read in conjunction with computer aided detection. COMPARISON: . BREAST COMPOSITION: The breasts are heterogeneously dense, which may obscure small masses. FINDINGS: No suspicious mass, suspicious microcalcifications, or architectural distortion in either breast is identified. Since the prior study, there has been no significant interval change. The computer aided diagnosis detects no significant abnormality. OVERALL FINAL ASSESSMENT: BI-RADS CATEGORY 1 : Negative Procedure Note Gertrudis Mcgovern MD - 09/29/2023 BILATERAL FULL-FIELD DIGITAL SCREENING MAMMOGRAM WITH CAD WITH 3D TOMOSYNTHESIS DATE: 09/29/2023 2:24 PM HISTORY: Routine screening. TECHNIQUE: Full-field digital craniocaudal and mediolateral oblique projections of both breasts were obtained. Low-dose full-field digital breast tomosynthesis examination was performed with 2D and 3D acquisitions. Examination is read in conjunction with computer aided detection. COMPARISON: . BREAST COMPOSITION: The breasts are heterogeneously dense, which may obscure small masses. FINDINGS: No suspicious mass, suspicious microcalcifications, or architectural distortion in either breast is identified. Since the prior study, there has been no significant interval change. The computer aided diagnosis detects no significant abnormality. OVERALL FINAL ASSESSMENT: BI-RADS CATEGORY 1 : Negative IMPRESSION: No mammographic evidence of malignancy. RECOMMENDATIONS: Routine screening mammogram in one year. DICTATION LOCATION: [facility], [place], [facility] External Provider [facility] MAMMO ORDERABLES Final R esult from Last 3 Months or Most Recently Relevant to Health Maintenance Insurance [employer] BLUE ACCESS/[facility]UE [facility]
== END 2025-03-03 15:14 | disposition home or self-care (01) ==
LOC: ANHIMG 15:14
PROVIDERS: PCP Nurse Practitioner Family; Visit Provider Obstetrics & Gynecology
DX: Z12.31 Encounter for screening mammogram for malignant neoplasm of breast (principal)
CPT/HCPCS: 77063; 77067